=== PATIENT | male | born 1980 | race Caucasian/White ===

== ENCOUNTER 2017-08-23 14:21 | Emergency (ER) | payer SELFPAY ==
[~2017-08-23] VITALS: Ht 177.8 cm; Wt 82.7 kg
[2017-08-23 14:24] VITALS: BP 126/81; TEMP 99.3
[2017-08-23] MEDS ORDERED: DOXYCYCLINE 10100 MG PO (15:19)
[2017-08-23 15:49] VITALS: PULSE 88
== END 2017-08-23 15:50 | disposition home or self-care (01) ==
LOC: COL.ER 14:21
DX: L03.011 Cellulitis of right finger (principal)